=== PATIENT | male | born 1940 | race Caucasian/White ===

== ENCOUNTER → 2018-08-30 | Outpatient (CLI) | payer MEDICARE, OTHER ==
[~2018-08-30] MED LIST: ASPI81EC; ATEN25; ATEN25 PO; ATOR10; ATOR10 PO; Celebrex200 MG PO; DILT120; DILT120 PO; ENAL10 PO; ENAL20; EZET10; EZET10 PO; IPRA.03NI; Lipitor20 MG PO; METO100ER; METO100ER PO; METO50ER PO; SILD25T PO; TAMS.4ER PO; TRIA80TC TOP; WARF4 PO; WARF5 PO
== END | disposition home or self-care (01) ==
LOC: LAB SHORT 11:54 → PLD 11:54
DX: C44.612 Basal cell carcinoma of skin of right upper limb, including shoulder (principal); L30.8 Other specified dermatitis
CPT/HCPCS: 88305; 88312

== ENCOUNTER → 2021-01-08 | Outpatient (CLI) | payer MEDICARE, OTHER | LOC: LAB SHORT 11:29 → PLD 11:29 | DX: L98.9 Disorder of the skin and subcutaneous tissue, unspecified (principal); L30.8 Other specified dermatitis | CPT/HCPCS: 88305; 88312 ==

== ENCOUNTER → 2021-11-12 | Outpatient (CLI) | payer MEDICARE, OTHER | LOC: LAB 12:14 → LAB SHORT 12:14 | DX: C44.41 Basal cell carcinoma of skin of scalp and neck (principal) | CPT/HCPCS: 88305 ==

== ENCOUNTER → 2021-11-26 | Outpatient (CLI) | payer MEDICARE, OTHER | END | disposition home or self-care (01) | LOC: PLD 12:59 → LAB SHORT 12:59 | DX: C44.41 Basal cell carcinoma of skin of scalp and neck (principal) | CPT/HCPCS: 88305 ==

== ENCOUNTER → 2022-04-09 | Outpatient (CLI) | payer MEDICARE, OTHER ==
[2022-04-09 13:05] LABS: BASOPHILS ABSOLUTE AUTO 0.07 K/mm3 (0.00-0.23); BASOPHILS PERCENT AUTO 1 % (0-2); EOSINOPHILS ABSOLUTE AUTO 0.07 K/mm3 (0.00-0.68); EOSINOPHILS PERCENT AUTO 1 % (0-6); Hematocrit 42.5 % (37.0-53.0); Hemoglobin 14.1 g/dL (13.5-17.5); IMMATURE GRAN ABSOLUTE AUTO 0.02 K/mm3 (0.00-0.10); IMMATURE GRAN PERCENT AUTO 0 % (0-1); LYMPHOCYTES ABSOLUTE AUTO 1.24 K/mm3 (0.84-5.20); LYMPHOCYTES PERCENT AUTO 17 % (21-46); MONOCYTES ABSOLUTE AUTO 0.59 K/mm3 (0.16-1.47); MONOCYTES PERCENT AUTO 8 % (4-13); Mean Corpuscular HGB 29.1 pg (26.0-34.0); Mean Corpuscular HGB Conc 33.2 g/dL (31.5-36.5); Mean Corpuscular Volume 88 fL (80-100); Mean Platelet Volume 10.9 fL (9.1-12.4); NEUTROPHILS ABSOLUTE AUTO 5.33 K/mm3 (1.96-9.15); NEUTROPHILS PERCENT AUTO 73 % (41-73); Platelet Count 225 K/mm3 (150-400); RDW Coefficient Variation 14.7 % (11.7-14.2); RDW Standard Deviation 47.2 fL (35.1-46.3); Red Blood Cell Count 4.85 M/mm3 (4.30-5.90); White Blood Cell Count 7.32 K/mm3 (4.00-11.30)
[2022-04-09 13:15] LABS: International Normalized Ratio 1.13; Prothrombin Time Results 11.8 Sec (9.7-11.5)
[2022-04-09 13:48] LABS: Albumin, Blood 3.9 g/dL (3.4-5.0); Bilirubin, Total 0.8 mg/dL (0.1-1.0); Bun/Creatinine Ratio 23.9 (12.0-20.0); Calcium, Blood 9.3 mg/dL (8.5-10.1); Creatinine, Blood 1.09 mg/dL (0.60-1.20); Globulin, Blood 3.8 g/dL (2.2-4.0); Potassium, Blood 4.8 mmol/L (3.5-5.5); Total Protein, Blood 7.7 g/dL (6.4-8.2)
== END ==
LOC: LAB SHORT 12:15
PROVIDERS: Physician Assistant
DX: L08.9 Local infection of the skin and subcutaneous tissue, unspecified (principal); I49.9 Cardiac arrhythmia, unspecified
CPT/HCPCS: 80053; 85025; 85610

== ENCOUNTER → 2022-10-14 | Outpatient (CLI) | payer MEDICARE, OTHER | END | disposition home or self-care (01) | LOC: PLD 11:35 → LAB SHORT 11:35 | DX: L57.0 Actinic keratosis (principal); L82.1 Other seborrheic keratosis | CPT/HCPCS: 88305 ==

== ENCOUNTER → 2022-11-19 | Outpatient (CLI) | payer MEDICARE, OTHER | END | disposition home or self-care (01) | LOC: LAB SHORT 11:56 → LAB 11:56 | DX: D48.5 Neoplasm of uncertain behavior of skin (principal); L82.1 Other seborrheic keratosis | CPT/HCPCS: 88305 ==

== ENCOUNTER → 2023-02-22 | Outpatient (CLI) | payer MEDICARE, OTHER | LOC: LAB SHORT 15:30 → LAB 15:30 | DX: R19.7 Diarrhea, unspecified (principal) | CPT/HCPCS: 87015; 87045; 87046; 87205; 87899 ==

== ENCOUNTER → 2023-03-16 | Outpatient (CLI) | payer MEDICARE, OTHER | END | disposition home or self-care (01) | LOC: LAB 14:34 → LAB SHORT 14:34 → PLD 14:34 | DX: C44.329 Squamous cell carcinoma of skin of other parts of face (principal) | CPT/HCPCS: 88305 ==

== ENCOUNTER 2023-06-02 09:13 | Observation (INO) | payer MEDICARE, OTHER ==
[~2023-06-02] VITALS: Ht 177.8 cm; Wt 76.2 kg
[~2023-06-02 09:13] MED LIST changes: -METO100ER
[2023-06-02] MEDS ORDERED: ELIQUIS5 M3 PO (09:53)
[2023-06-02] MEDS ORDERED: IPRATROPIUM BRO30 ML (10:35)
[2023-06-02] MEDS ORDERED: DOXYCYCLINE HY100 M1 PO (10:35)
[2023-06-02] MEDS ORDERED: MYRBETRIQ50 MG PO (10:35)
[2023-06-02] MEDS ORDERED: CYMBALTA20 M2 PO (10:35)
[2023-06-02] MEDS ORDERED: OMEP20ER PO (10:36)
[2023-06-02 12:16] LABS: BASOPHILS ABSOLUTE AUTO 0.07 K/mm3 (0.00-0.23); BASOPHILS PERCENT AUTO 1 % (0-2); EOSINOPHILS ABSOLUTE AUTO 0.12 K/mm3 (0.00-0.68); EOSINOPHILS PERCENT AUTO 1 % (0-6); Hematocrit 39.8 % (37.0-53.0); Hemoglobin 13.8 g/dL (13.5-17.5); IMMATURE GRAN ABSOLUTE AUTO 0.04 K/mm3 (0.00-0.10); IMMATURE GRAN PERCENT AUTO 1 % (0-1); LYMPHOCYTES PERCENT AUTO 10 % (21-46); MONOCYTES ABSOLUTE AUTO 1.01 K/mm3 (0.16-1.47); MONOCYTES PERCENT AUTO 12 % (4-13); Mean Corpuscular HGB 30.4 pg (26.0-34.0); Mean Corpuscular HGB Conc 34.7 g/dL (31.5-36.5); Mean Corpuscular Volume 88 fL (80-100); NEUTROPHILS ABSOLUTE AUTO 6.63 K/mm3 (1.96-9.15); NEUTROPHILS PERCENT AUTO 76 % (41-73); Platelet Count 236 K/mm3 (150-400); RDW Standard Deviation 44.8 fL (35.1-46.3); Red Blood Cell Count 4.54 M/mm3 (4.30-5.90); White Blood Cell Count 8.77 K/mm3 (4.00-11.30)
[2023-06-02 12:28] LABS: Albumin, Blood 3.5 g/dL (3.4-5.0); Albumin/Globulin Ratio 0.8 (0.8-1.8); Bilirubin, Total 0.9 mg/dL (0.1-1.0); Bun/Creatinine Ratio 23.9 (12.0-20.0); Calcium, Blood 9.1 mg/dL (8.5-10.1); Creatinine, Blood 0.84 mg/dL (0.60-1.20); Globulin, Blood 4.3 g/dL (2.2-4.0); Potassium, Blood 4.6 mmol/L (3.5-5.5); Total Protein, Blood 7.8 g/dL (6.4-8.2)
[2023-06-02] MEDS ORDERED: METO50ER PO (13:40)
[2023-06-02] MEDS ORDERED: Lovastatin10 MG PO (13:42)
[2023-06-02] MEDS ORDERED: COLESEVELAM HC625 MG PO (13:43)
[2023-06-02 14:51] LABS: Source, Urine Clean Catch
[2023-06-02 14:59] VITALS: BP 110/64
[2023-06-02 15:01] LABS: Appearance, Urine Clear (Clear); Bilirubin, Urine Neg (Neg); Blood, Urine 3+ (Neg); Color, Urine Yellow (P-Yellow); Glucose Qualitative, Urine Neg (Neg); Ketones, Urine Neg (Neg); Leukocyte Esterase, Urine Neg (Neg); Nitrite, Urine Neg (Neg); Protein, Urine Neg (Neg); Specific Gravity, Urine 1.015 (1.003-1.022); Urobilinogen, Urine NORM (Normal)
[2023-06-02] MEDS ORDERED: CLOBETASOL EMOL15 G1 (15:43)
[2023-06-02] MEDS ORDERED: B COMPLEX FORM0.4 MG PO (15:43)
[2023-06-02] MEDS ORDERED: CLOBETASOL EMOL15 G1 TOP (15:44)
[2023-06-02 15:46] LABS: Bacteria Rare /hpf; Squamous Epithelial Cells Not Seen /hpf (Few); White Blood Cells, Urine 0-2 /hpf (0-5)
--- NOTE | 2023-06-02 18:02 | NUR ---
SHIFT SUMMARY/ADMISSION NOTE PT AxOx4. PLEASANT AND COOPERATIVE WITH CARE. PT ARRIVED TO MEDICAL FLOOR FROM ED AT APPROX 1452. PT'S MEDS RECONCILED AND ADMISSION IS COMPLETED. PT'S , JENNIFER, IN ROOM AND UPDATED ON PLAN OF CARE. PT REPORTED PAIN IN L SIDE, R/T FALL/RIB FX. PT WAS MEDICATED PER EMAR WITH REPORTED RELIEF. PT HAD A FEW SCATTERED BRUISES/ABRASIONS FROM HIS FALL YESTERDAY. PICS WERE TAKEN FOR CHART, WOUNDS WERE CLEANSED AND NEW DRESSINGS WERE APPLIED. PT IS ON TELE, RUNNING 100% PACED AT 76 BPM. PT IS CURRENTLY SITTING UP IN BED EATING DINNER. CALL LIGHT IN REACH. BED ALARM ON FOR SAFETY. PT DENIES ANY NEEDS AT THIS TIME.
--- NOTE | 2023-06-02 18:07 | NUR ---
SHIFT SUMMARY PT AxOx4 WITH OCCASIONAL MINOR CONFUSION/FORGETFULNESS. SHE IS PLEASANT AND COOPERATIVE WITH CARE. PT DENIES RESPIRATORY SYMPTOMS THIS SHIFT, BREATHING WITHOUT DIFFICULTY ON RA. SHE DOES USE HER CPAP WHEN SHE WANTS TO TAKE NAP. PT WAS UP IN RECLINER FOR MOST OF THE DAY. HER CAME IN FOR VISITING MOST OF TODAY DAY WELL. TELE RUNNING AFIB AT 85. PT DENIES PAIN TODAY. PT USED [facility] WHILE SHE WAS UP IN CHAIR TODAY, BUT PREFERS [facility] WHILE SHE IS RESTING IN BED. SHE NEEDS 1 ASSIST WITH [facility] FOR TRANSFERS. CURRENT PLAN IS FOR POSSIBLE DC HOME TOMORROW WITH HOME TARUN. PT IS CURRENTLY SITTING IN CHAIR EATING DINNER. DENIES ANY NEEDS AT THIS TIME. CALL LIGHT IN REACH.
[2023-06-02 19:28] VITALS: BP 114/72
[2023-06-03 03:13] VITALS: BP 126/78
[2023-06-03 06:15] LABS: BASOPHILS ABSOLUTE AUTO 0.06 K/mm3 (0.00-0.23); BASOPHILS PERCENT AUTO 1 % (0-2); EOSINOPHILS PERCENT AUTO 3 % (0-6); Hematocrit 40.2 % (37.0-53.0); Hemoglobin 13.5 g/dL (13.5-17.5); IMMATURE GRAN ABSOLUTE AUTO 0.02 K/mm3 (0.00-0.10); IMMATURE GRAN PERCENT AUTO 0 % (0-1); LYMPHOCYTES ABSOLUTE AUTO 1.07 K/mm3 (0.84-5.20); LYMPHOCYTES PERCENT AUTO 16 % (21-46); MONOCYTES ABSOLUTE AUTO 0.75 K/mm3 (0.16-1.47); MONOCYTES PERCENT AUTO 11 % (4-13); Mean Corpuscular HGB 29.7 pg (26.0-34.0); Mean Corpuscular HGB Conc 33.6 g/dL (31.5-36.5); Mean Corpuscular Volume 89 fL (80-100); Mean Platelet Volume 10.8 fL (9.1-12.4); NEUTROPHILS ABSOLUTE AUTO 4.64 K/mm3 (1.96-9.15); NEUTROPHILS PERCENT AUTO 69 % (41-73); Platelet Count 212 K/mm3 (150-400); RDW Coefficient Variation 13.8 % (11.7-14.2); RDW Standard Deviation 45.2 fL (35.1-46.3); Red Blood Cell Count 4.54 M/mm3 (4.30-5.90); White Blood Cell Count 6.74 K/mm3 (4.00-11.30)
--- NOTE | 2023-06-03 06:45 | NUR ---
SHIFT SUMMARY PRN PAIN MEDICATION GIVEN X1 THIS SHIFT. NO OTHER EVENTS. REPORTS PAIN IS WELL MANAGED .
[2023-06-03 06:52] LABS: Albumin, Blood 3.3 g/dL (3.4-5.0); Albumin/Globulin Ratio 0.8 (0.8-1.8); Bun/Creatinine Ratio 20.6 (12.0-20.0); Creatinine, Blood 0.87 mg/dL (0.60-1.20); Globulin, Blood 3.9 g/dL (2.2-4.0); Potassium, Blood 4.1 mmol/L (3.5-5.5); Total Protein, Blood 7.2 g/dL (6.4-8.2)
[2023-06-03 07:37] VITALS: BP 129/77
[2023-06-03] MEDS ORDERED: ACET325 PO (15:35)
[2023-06-03] MEDS ORDERED: Norco 5-325 Ta1 EACH PO (15:36)
[2023-06-03] MEDS ORDERED: SENN187 PO (15:37)
[2023-06-03] MEDS ORDERED: B-1100 M1 PO (15:38)
--- NOTE | 2023-06-03 16:33 | NUR ---
DISCHARGE: PT D/C @1615 VIA WHEELCHAIR WITH . IV IN RFA REMOVED W/O COMPLAINTS. TELE SENT BACK. MEDICATIONS FAXED TO [facility] ON [place]. HARD SCRIPT FOR WHEELCHAIR AND [place] SENT WITH DAUGHTER. PT RECEIVED PAIN MEDICATION ONCE THIS SHIFT PER EMAR. SPIROMETER EXPLAINED TO PT AND SENT HOME. HARD SCRIPT SENT WITH PT FOR OUTPATIENT PHYSICAL THERAPY.
== END 2023-06-03 16:33 | disposition home or self-care (01) ==
LOC: ER 09:13 → MEDS 09:14 → ICUE 09:14 → MEDS 14:51
PROVIDERS: Surgery; ADMIT Internal Medicine
DX: S22.42XA Multiple fractures of ribs, left side, initial encounter for closed fracture (principal); W18.30XA Fall on same level, unspecified, initial encounter; I49.5 Sick sinus syndrome; Z79.01 Long term (current) use of anticoagulants; I10 Essential (primary) hypertension; E78.5 Hyperlipidemia, unspecified; N40.0 Benign prostatic hyperplasia without lower urinary tract symptoms
CPT/HCPCS: 36415; 70450; 71260; 74177; 80053; 81001; 85025; 93306; 93880; 96374-59; 97110; 97116; 97162; 97165; 97530; 97535; 99285-25; A9270; G0378; J1170; Q9967

== ENCOUNTER 2023-10-01 06:04 | Day surgery (SDC) | payer MEDICARE, OTHER ==
[~2023-10-01] VITALS: Ht 177.8 cm; Wt 79.8 kg
[~2023-10-01 06:04] MED LIST changes: +ACET325 PO; +ATROVENT HFA12.9 GM INH; +B COMPLEX FORM0.4 MG PO; +B-1100 M1 PO; +CLOBETASOL EMOL15 G1; +CLOBETASOL EMOL15 G1 TOP; +COLE625 PO; +COLESEVELAM HC625 MG PO; +CYMBALTA20 M2 PO; +DOXYCYCLINE HY100 M1 PO; +ELIQUIS5 M3 PO; +IPRATROPIUM BRO30 ML; +Lovastatin10 MG PO; +MYRBETRIQ50 MG PO; +Norco 5-325 Ta1 EACH PO; +OMEP20ER PO; +SENN187 PO
[2023-10-01] MEDS ORDERED: Heparin Sodium 1000 Units/ML 10ML MDV ONE (06:25)
[2023-10-01] MEDS ORDERED: CeFAZolin Sodium 1000 mg Vial ONE (06:25)
[2023-10-01] MEDS ORDERED: NS 1,000 ML IV ONE ×2 (06:25→07:07)
[2023-10-01 06:49] VITALS: BP 124/73
[2023-10-01 07:00] VITALS: BP 123/71
[2023-10-01] MEDS ORDERED: FentaNYL Citrate 50 MCG/ML 2 ML Injection ONE (07:06)
[2023-10-01] MEDS ORDERED: CeFAZolin Sodium 2,000 MG VIAL ONE (07:06)
[2023-10-01] MEDS ORDERED: NS 100 ML IV ONE (07:07)
[2023-10-01 07:15] VITALS: BP 125/68
--- NOTE | 2023-10-01 09:30 | NUR ---
ICE BAG PLACED ON L UPPER CHEST AREA. NEG SWELLING OR BLEEDING. AT BEDSIDE.
[2023-10-01 10:00] VITALS: BP 135/67
[2023-10-01 10:15] VITALS: BP 131/86
== END 2023-10-01 11:00 | disposition home or self-care (01) ==
LOC: MHTC 06:04
DX: Z45.010 Encounter for checking and testing of cardiac pacemaker pulse generator [battery] (principal); I48.0 Paroxysmal atrial fibrillation; I10 Essential (primary) hypertension; E78.5 Hyperlipidemia, unspecified; Z79.01 Long term (current) use of anticoagulants; Z79.899 Other long term (current) drug therapy; Z88.8 Allergy status to other drugs, medicaments and biological substances
CPT/HCPCS: 33228; 99152; 99153; C1785; J0690; J1644; J3010; J7030; J7040

== ENCOUNTER → 2023-12-13 | Outpatient (CLI) | payer MEDICARE, OTHER | LOC: LAB 12:37 → LAB SHORT 12:37 | DX: D04.72 Carcinoma in situ of skin of left lower limb, including hip (principal) | CPT/HCPCS: 88305 ==

== ENCOUNTER → 2024-02-11 | Outpatient (CLI) | payer MEDICARE, OTHER ==
[2024-02-17 16:26] LABS: ALBUMIN %,URINE 66.2 %; ALPHA-1 %,URINE 8.1 %; ALPHA-2 %,URINE 9.8 %; BETA GLOBULIN %,URINE 12.7 %; GAMMA GLOBULIN %,URINE 3.2 %; HOURS COLLECTED 24 hr; TOTAL VOLUME 1900 mL
== END | disposition home or self-care (01) ==
LOC: LAB 11:19 → LAB SHORT 11:19
PROVIDERS: Internal Medicine
DX: I11.0 Hypertensive heart disease with heart failure (principal); I50.9 Heart failure, unspecified; R79.89 Other specified abnormal findings of blood chemistry; Z79.899 Other long term (current) drug therapy
CPT/HCPCS: 81050; 84156; 84166; 86335

== ENCOUNTER → 2024-11-15 | Outpatient (CLI) | payer MEDICARE, OTHER ==
[2024-11-15 09:26] LABS: Source, Urine Clean Catch
[2024-11-15 11:00] LABS: Appearance, Urine Clear (Clear); Bilirubin, Urine Neg (Neg); Blood, Urine 1+ (Neg); Color, Urine Yellow (P-Yellow); Glucose Qualitative, Urine 4+ (Neg); Ketones, Urine Neg (Neg); Leukocyte Esterase, Urine Neg (Neg); Nitrite, Urine Neg (Neg); Protein, Urine 1+ (Neg); Specific Gravity, Urine 1.015 (1.003-1.022); Urobilinogen, Urine NORM (Normal)
[2024-11-15 11:16] LABS: Bacteria Few /hpf; Squamous Epithelial Cells Rare /hpf (Few); White Blood Cells, Urine 0-2 /hpf (0-5)
== END ==
LOC: LAB SHORT 09:25 → LAB 09:25
PROVIDERS: Internal Medicine
DX: R35.0 Frequency of micturition (principal)
CPT/HCPCS: 81001

== ENCOUNTER → 2024-11-28 | Outpatient (CLI) | payer MEDICARE, OTHER ==
[2024-11-28 14:58] LABS: Source, Urine Clean Catch
[2024-11-28 17:39] LABS: Appearance, Urine Clear (Clear); Bilirubin, Urine Neg (Neg); Blood, Urine Neg (Neg); Color, Urine Yellow (P-Yellow); Glucose Qualitative, Urine 4+ (Neg); Ketones, Urine Neg (Neg); Leukocyte Esterase, Urine Neg (Neg); Nitrite, Urine Neg (Neg); Protein, Urine Neg (Neg); Specific Gravity, Urine 1.015 (1.003-1.022); Urobilinogen, Urine NORM (Normal)
== END | disposition home or self-care (01) ==
LOC: LAB 14:53 → LAB SHORT 14:53 → LAB FUT 11-16 14:20
PROVIDERS: Internal Medicine
DX: R31.29 Other microscopic hematuria (principal)
CPT/HCPCS: 81003

== ENCOUNTER 2025-01-18 09:55 | Emergency (ER) | payer MEDICARE, OTHER ==
[~2025-01-18] VITALS: Ht 177.8 cm; Wt 72.6 kg
[~2025-01-18 09:55] MED LIST changes: +ATROVENT HFA12.9 GM; +B-12500 MC2 PO; +DONEPEZIL HCL10 M1 PO; +ENTRESTO 49 MG1 EAC7 PO; +FUROSEMIDE20 MG PO; +JARDIANCE10 MG PO; +METO100; +Potassium Chlo20 ME1 PO; +TAMSULOSIN HCL0.4 M1 PO; +ZOLOFT25 MG PO; +vitamin D
[2025-01-18 10:40] LABS: BASOPHILS ABSOLUTE AUTO 0.04 K/mm3 (0.00-0.23); BASOPHILS PERCENT AUTO 1 % (0-2); EOSINOPHILS ABSOLUTE AUTO 0.08 K/mm3 (0.00-0.68); EOSINOPHILS PERCENT AUTO 1 % (0-6); Hematocrit 41.3 % (37.0-53.0); Hemoglobin 13.8 g/dL (13.5-17.5); IMMATURE GRAN ABSOLUTE AUTO 0.01 K/mm3 (0.00-0.10); IMMATURE GRAN PERCENT AUTO 0 % (0-1); LYMPHOCYTES ABSOLUTE AUTO 0.88 K/mm3 (0.84-5.20); LYMPHOCYTES PERCENT AUTO 14 % (21-46); MONOCYTES ABSOLUTE AUTO 0.75 K/mm3 (0.16-1.47); MONOCYTES PERCENT AUTO 12 % (4-13); Mean Corpuscular HGB 30.5 pg (26.0-34.0); Mean Corpuscular HGB Conc 33.4 g/dL (31.5-36.5); Mean Corpuscular Volume 91 fL (80-100); Mean Platelet Volume 10.5 fL (9.1-12.4); NEUTROPHILS ABSOLUTE AUTO 4.71 K/mm3 (1.96-9.15); NEUTROPHILS PERCENT AUTO 73 % (41-73); Platelet Count 199 K/mm3 (150-400); RDW Coefficient Variation 15.4 % (11.7-14.2); RDW Standard Deviation 51.6 fL (35.1-46.3); Red Blood Cell Count 4.53 M/mm3 (4.30-5.90); White Blood Cell Count 6.47 K/mm3 (4.00-11.30)
[2025-01-18] MEDS ORDERED: MAGN84 PO (11:04)
[2025-01-18] MEDS ORDERED: Lovastatin20 MG PO (11:06)
[2025-01-18] MEDS ORDERED: B-COMPLEX WITH1 EAC2 PO (11:06)
[2025-01-18 11:07] LABS: Albumin, Blood 3.8 g/dL (3.4-5.0); Albumin/Globulin Ratio 1.1 (0.8-1.8); Bilirubin, Total 1.1 mg/dL (0.1-1.0); Bun/Creatinine Ratio 21.4 (12.0-20.0); Calcium, Blood 8.8 mg/dL (8.5-10.1); Creatinine, Blood 1.31 mg/dL (0.60-1.20); Globulin, Blood 3.5 g/dL (2.2-4.0); Potassium, Blood 4.9 mmol/L (3.5-5.5); Total Protein, Blood 7.3 g/dL (6.4-8.2)
[2025-01-18] MEDS ORDERED: [UNRECOGNIZED DRUG - OTHER] TP (11:09)
[2025-01-18 11:49] VITALS: BP 104/59
== END 2025-01-18 11:52 | disposition home or self-care (01) ==
LOC: ER 09:55
PROVIDERS: Student in an Organized Health Care Education/Training Program
DX: S00.03XA Contusion of scalp, initial encounter (principal); M54.2 Cervicalgia; Z88.8 Allergy status to other drugs, medicaments and biological substances; Z79.01 Long term (current) use of anticoagulants; Z79.899 Other long term (current) drug therapy; I10 Essential (primary) hypertension; I48.91 Unspecified atrial fibrillation; M19.90 Unspecified osteoarthritis, unspecified site; Z87.891 Personal history of nicotine dependence; W01.0XXA Fall on same level from slipping, tripping and stumbling without subsequent striking against object, initial encounter
CPT/HCPCS: 70450; 71046; 72125; 80053; 85025; 93005; 93010; 99284-25

== ENCOUNTER 2025-02-27 09:35 | Emergency (ER) | payer MEDICARE, OTHER ==
[~2025-02-27] VITALS: Ht 177.8 cm; Wt 73.0 kg
[~2025-02-27 09:35] MED LIST changes: +B-COMPLEX WITH1 EAC2 PO; +Lovastatin20 MG PO; +MAGN84 PO; +[UNRECOGNIZED DRUG - OTHER] TP
[2025-02-27 09:51] VITALS: BP 103/54
[2025-02-27 10:50] LABS: BASOPHILS ABSOLUTE AUTO 0.04 K/mm3 (0.00-0.23); BASOPHILS PERCENT AUTO 1 % (0-2); EOSINOPHILS ABSOLUTE AUTO 0.07 K/mm3 (0.00-0.68); EOSINOPHILS PERCENT AUTO 1 % (0-6); Hematocrit 42.7 % (37.0-53.0); Hemoglobin 14.4 g/dL (13.5-17.5); IMMATURE GRAN ABSOLUTE AUTO 0.02 K/mm3 (0.00-0.10); IMMATURE GRAN PERCENT AUTO 0 % (0-1); LYMPHOCYTES ABSOLUTE AUTO 0.70 K/mm3 (0.84-5.20); LYMPHOCYTES PERCENT AUTO 9 % (21-46); MONOCYTES ABSOLUTE AUTO 0.84 K/mm3 (0.16-1.47); MONOCYTES PERCENT AUTO 11 % (4-13); Mean Corpuscular HGB Conc 33.7 g/dL (31.5-36.5); Mean Corpuscular Volume 90 fL (80-100); NEUTROPHILS ABSOLUTE AUTO 6.23 K/mm3 (1.96-9.15); NEUTROPHILS PERCENT AUTO 79 % (41-73); NRBC ABSOLUTE 0.00 K/mm3 (0.00-0.02); NRBC Auto 0.0 /100 WBC (0.0-0.2); Platelet Count 209 K/mm3 (150-400); RDW Coefficient Variation 14.4 % (11.7-14.2); RDW Standard Deviation 47.7 fL (35.1-46.3)
[2025-02-27 11:55] LABS: Alanine Aminotransfer (ALT/SGP 57.0 U/L (12-78); Albumin, Blood 3.5 g/dL (3.4-5.0); Albumin/Globulin Ratio 0.9 (0.8-1.8); Anion Gap 15.0 mmol/L (3-11); Aspartate Aminotrans (AST/SGOT 59.0 U/L (12-37); Bilirubin, Total 0.8 mg/dL (0.1-1.0); Blood Urea Nitrogen 24.0 mg/dL (8-24); CO2, Blood 24.0 mmol/L (21-32); Calcium, Blood 8.9 mg/dL (8.5-10.1); Chloride, Blood 103.0 mmol/L (98-108); Creatinine, Blood 1.27 mg/dL (0.60-1.20); Globulin, Blood 3.7 g/dL (2.2-4.0); Glucose, Blood 119.0 mg/dL (70-99); Potassium, Blood 5.0 mmol/L (3.5-5.5); Sodium, Blood 137.0 mmol/L (136-145); Total Protein, Blood 7.2 g/dL (6.4-8.2)
== END 2025-02-27 12:22 | disposition home or self-care (01) ==
LOC: ER 09:35
PROVIDERS: Emergency Medicine
DX: S09.90XA Unspecified injury of head, initial encounter (principal); M25.561 Pain in right knee; W19.XXXA Unspecified fall, initial encounter; R55 Syncope and collapse; I11.0 Hypertensive heart disease with heart failure; I50.20 Unspecified systolic (congestive) heart failure; I48.91 Unspecified atrial fibrillation; E11.9 Type 2 diabetes mellitus without complications; F03.90 Unspecified dementia, unspecified severity, without behavioral disturbance, psychotic disturbance, mood disturbance, and anxiety; Z79.01 Long term (current) use of anticoagulants; Z88.8 Allergy status to other drugs, medicaments and biological substances; Z79.899 Other long term (current) drug therapy; Z87.891 Personal history of nicotine dependence
CPT/HCPCS: 70450; 72125; 73562-RT; 80053; 85025; 93005; 93010; 99284-25